=== PATIENT | female | born 1995 | race African-American/Black ===

== ENCOUNTER 2017-09-26 20:18 | Emergency (ER) | payer SELFPAY ==
--- NOTE | 2017-09-26 20:40 | ER Document Report ---
ED Medical Screen (RME) - General Chief Complaint: Vaginal Bleeding Stated Complaint: VAGINAL BLEEDING Time Seen by Provider: 09/26/17 20:38 Mode of Arrival: Ambulatory Information source: Patient Notes: Patient reports several months of heavy vaginal bleeding. She denies any problems with lightheadedness or dizziness. She states that every time she has an EKG done her heart rate is always over 100. TRAVEL OUTSIDE OF THE [place] IN LAST 30 DAYS: No - Related Data Allergies/Adverse Reactions: No Known Allergies Allergy (Verified 02/10/14 00:50) Past Medical History - Social History Chew tobacco use (# tins/day): No Frequency of alcohol use: None Drug Abuse: None Endocrine Medical History: Denies: Hx Diabetes Mellitus Type 1, Hx Diabetes Mellitus Type 2 Renal/ Medical History: Denies: Hx Peritoneal Dialysis - Immunizations Immunizations up to date: Yes Hx Diphtheria, Pertussis, Tetanus Vaccination: Yes Physical Exam - Vital signs Vitals: Temp Pulse Resp BP Pulse Ox 98.7 F 115 H 20 140/91 H 98 09/26/17 20:31 09/26/17 20:31 09/26/17 20:31 09/26/17 20:31 09/26/17 20:31 Course - Vital Signs Vital signs: Temp Pulse Resp BP Pulse Ox 98.7 F 115 H 20 140/91 H 98 09/26/17 20:31 09/26/17 20:31 09/26/17 20:31 09/26/17 20:31 09/26/17 20:31
[2017-09-26 21:09] LABS: ABSOLUTE BASOPHILS # (AUTO) 0.1 10^3/uL (0.0-0.2); ABSOLUTE EOSINOPHILS # (AUTO) 0.4 10^3/uL (0.0-0.6); ABSOLUTE LYMPHOCYTES (AUTO) 2.8 10^3/uL (0.5-4.7); ABSOLUTE MONOCYTES (AUTO) 0.8 10^3/uL (0.1-1.4); BASOPHILS % (AUTO) 0.8 % (0-2); EOSINOPHILS % (AUTO) 3.6 % (0-6); HEMATOCRIT 39.6 % (36.0-47.0); HEMOGLOBIN 13.2 g/dL (12.0-15.5); LYMPHOCYTES % (AUTO) 28.1 % (13-45); MEAN CORPUSCULAR HGB CONC 33.4 g/dL (32.0-36.0); MEAN CORPUSCULAR VOLUME 84 fl (80-97); MONOCYTES % (AUTO) 7.6 % (3-13); PLATELET COUNT 433 10^3/uL (150-450); RED BLOOD COUNT 4.72 10^6/uL (3.72-5.28); RED CELL DISTRIBUTION WIDTH 14.2 % (11.5-14.0); SEGMENTED NEUTROPHILS % (AUTO) 59.9 % (42-78); TOTAL CELLS COUNTED % (AUTO) 100 %
[2017-09-26 21:33] LABS: ALANINE AMINOTRANSFERASE 32 U/L (9-52); ALBUMIN 4.2 g/dL (3.5-5.0); ALKALINE PHOSPHATASE 97 U/L (38-126); ANION GAP 10 (5-19); ASPARTATE AMINO TRANSFERASE 18 U/L (14-36); BILIRUBIN,DIRECT 0.1 mg/dL (0.0-0.4); BILIRUBIN,TOTAL 0.1 mg/dL (0.2-1.3); BLOOD UREA NITROGEN 12 mg/dL (7-20); CALCIUM 9.5 mg/dL (8.4-10.2); CARBON DIOXIDE 27 mmol/L (22-30); CHLORIDE 108 mmol/L (98-107); GLUCOSE 75 mg/dL (75-110); POTASSIUM 4.1 mmol/L (3.6-5.0); SODIUM 145.1 mmol/L (137-145); TOTAL PROTEIN 7.7 g/dL (6.3-8.2)
--- NOTE | 2017-09-26 21:35 | ER Document Report ---
ED GI/ - General Chief Complaint: Vaginal Bleeding Stated Complaint: VAGINAL BLEEDING Time Seen by Provider: 09/26/17 20:38 Mode of Arrival: Ambulatory Information source: Patient TRAVEL OUTSIDE OF THE [place] IN LAST 30 DAYS: No - HPI Patient complains to provider of: Vaginal bleeding Notes: 09/26/17 21:32 Patient is here with complaints of vaginal bleeding. She states that she has a long history of abnormal periods. She states that 3 years ago she was having heavy periods and was placed on control which seem to regulate everything. She came off control approximately a year ago and ever since that time she has had intermittent abnormal periods. She states that she has times where she bleeds for an entire month and then will stop for a few days and then have some spotting and then stop and then bleed. For the last month she has had bleeding. Her last sexual activity was in June. She states over the last few days she has been having some lower abdominal cramping. She denies any significant pain currently. No fever. No nausea, vomiting, diarrhea. No dysuria. No rash. No injury. She denies any dizziness, chest pain, shortness of breath. No syncope. She has no other complaints at this time. She has not seen an [employer] SUPERVISOR for this problem. - Related Data Allergies/Adverse Reactions: No Known Allergies Allergy (Verified 02/10/14 00:50) Past Medical History - General Information source: Patient - Social History Smoking Status: Never Smoker Chew tobacco use (# tins/day): No Frequency of alcohol use: None Drug Abuse: None Family History: Reviewed & Not Pertinent Patient has suicidal ideation: No Patient has homicidal ideation: No Endocrine Medical History: Denies: Hx Diabetes Mellitus Type 1, Hx Diabetes Mellitus Type 2 Renal/ Medical History: Denies: Hx Peritoneal Dialysis - Immunizations Immunizations up to date: Yes Hx Diphtheria, Pertussis, Tetanus Vaccination: Yes Review of Systems - Review of Systems -: Yes All other systems reviewed and negative Physical Exam - Vital signs Vitals: Temp Pulse Resp BP Pulse Ox 98.7 F 115 H 20 140/91 H 98 09/26/17 20:31 09/26/17 20:31 09/26/17 20:31 09/26/17 20:31 09/26/17 20:31 - Notes Notes: GENERAL: alert, cooperative, nontoxic, no distress. HEAD: normocephalic, atraumatic EYES: conjunctiva pink without discharge, no external redness or swelling. EARS: no external swelling, no external redness NOSE: atraumatic, no external swelling MOUTH/THROAT: mucous membranes moist and pink, posterior pharynx without erythema, swelling, exudate. No trismus or drooling. NECK: soft, supple, full range of motion, no meningismus. CHEST: no distress, lungs clear and equal throughout. No wheezing, rales, rhonchi. CARDIAC: regular rate and rhythm, no murmur, normal capillary refill, normal pulses. No peripheral edema noted. ABDOMEN: Soft, nontender. No rebound tenderness or guarding. No mass. BACK: full range of motion, no CVA tenderness. EXTREMITIES: full range of motion of all extremities. No redness, no swelling. NEURO: alert and oriented x 3, no focal deficits, full range of motion of all extremities. PYSCH: appropriate mood, affect. Patient is cooperative. SKIN: pink, warm, dry, no rash. : Performed with a female foundry manager at the bedside. No external lesions. Small amount of blood within the vaginal vault. Cervical office appears slightly irritated. No cervical motion tenderness, no adnexal tenderness or mass on bimanual exam. No discharge. Course - Re-evaluation Re-evalutation: 09/26/17 22:50 Patient is nontoxic. Stable vitals. The patient is here with complaints of vaginal bleeding. She states that she said significant abnormal periods for the last year and basically has had fairly constant bleeding for the last year. She has had no syncope, dizziness, chest pain or shortness of breath. Started having some lower abdominal cramping. She has no abdominal tenderness on exam. Pelvic exam shows small amount of vaginal blood with no other significant abnormal findings. Hemoglobin is stable. The remainder of her labs are stable. Urinalysis shows no signs of infection. Wet prep is negative. GC chlamydia cultures are pending, the patient will be contacted if these are positive. This point the patient is fine for discharge home. She does need to follow-up with [employer] SUPERVISOR or primary care to try to get her dysfunctional uterine bleeding under control. Patient be discharged with a prescription for Naprosyn that she can take as needed for her cramping. The patient's emergency department workup and current diagnosis were explained to the patient and or family. Follow-up instructions were provided. Medications if prescribed were discussed. Instructions for when to return to the emergency department including specific worrisome symptoms were discussed with the patient and/or family. The patient is noted to have elevated blood pressure during today's emergency department visit. The patient was informed of this finding. The patient was instructed that this may be related to pre-hypertension and requires further evaluation with a primary care provider. The patient has no hypertensive symptoms at this time. - Vital Signs Vital signs: Temp Pulse Resp BP Pulse Ox 98.7 F 115 H 20 140/91 H 98 09/26/17 20:31 09/26/17 20:31 09/26/17 20:31 09/26/17 20:31 09/26/17 20:31 - Laboratory Result Diagrams: 09/26/17 20:50 09/26/17 20:50 Laboratory results interpreted by me: 09/26/17 09/26/17 09/26/17 20:50 20:50 21:07 RDW 14.2 H Sodium 145.1 H Chloride 108 H Total Bilirubin 0.1 L Urine Blood MODERATE H Urine Urobilinogen 4.0 H Discharge - Discharge Clinical Impression: Dysfunctional uterine bleeding Condition: Stable Disposition: HOME, SELF-CARE Instructions: Dysfunctional Uterine Bleeding ([facility]) Additional Instructions: Take medications as prescribed. Follow-up with [employer] SUPERVISOR or primary care at the next available appointment. Follow-up sooner for increasing pain, high fever, persistent vomiting, severe bleeding, passing out, dizziness, chest pain, or for any further concerns. Your blood pressure was elevated during today's visit. Have this rechecked with your doctor. Prescriptions: Naproxen [Naprosyn] 500 mg PO BID #20 tablet Forms: Elevated Blood Pressure, Smoking Cessation Education Referrals: CANDIS MESA MD [ACTIVE STAFF] - Follow up as needed [facility] [Provider Group] - Follow up as needed
[2017-09-26 21:37] LABS: APPEARANCE,URINE SLIGHTLY-CLOUDY; BILIRUBIN,URINE NEGATIVE (NEGATIVE); COLOR,URINE YELLOW; GLUCOSE, URINE NEGATIVE (NEGATIVE); KETONES,URINE NEGATIVE (NEGATIVE); LEUKOCYTE ESTERASE,URINE NEGATIVE (NEGATIVE); NITRITE,URINE NEGATIVE (NEGATIVE); PROTEIN,URINE NEGATIVE (NEGATIVE); URINE SPECIFIC GRAVITY 1.027
[2017-09-26 22:25] LABS: T.VAGINALIS (WET MOUNT) NO TRICHOMONAS SEEN; WBCS (WET MOUNT) RARE WBCS SEEN; YEAST (WET MOUNT) NO YEAST SEEN
[2017-09-26 22:26] LABS: RBCS (WET MOUNT) 3+ RBCS SEEN
[2017-09-26 23:06] VITALS: BP 121/80
[2017-09-26 23:52] LABS: CHLAM PCR NOT DETECTED (NOT DETECT); GON PCR DETECTED (NOT DETECT)
== END 2017-09-26 23:07 | disposition home or self-care (01) ==
LOC: ER 20:18
DX: N93.8 Other specified abnormal uterine and vaginal bleeding (principal); R10.30 Lower abdominal pain, unspecified; R03.0 Elevated blood-pressure reading, without diagnosis of hypertension
CPT/HCPCS: 36415; 80053; 81001; 81025; 85025; 87210; 87491; 87591; 99284

== ENCOUNTER 2018-06-11 21:38 | Emergency (ER) | payer BC, MEDICAID ==
--- NOTE | 2018-06-11 23:14 | ER Document Report ---
ED Medical Screen (RME) - General Chief Complaint: Weakness Stated Complaint: LIGHT HEADED Time Seen by Provider: 06/11/18 23:12 Mode of Arrival: Ambulatory Information source: Patient Notes: 23-year-old female presents the ED for complaint of almost passing out and lightheaded and dizzy. She states the episode started on Sunday she was sent as a computer felt like she was going to pass out. She got up and walked around and felt like she was walking to the side. She states after little bit this episode went away but she has had multiple episodes similar to this since then. She denies any pain nausea or vomiting at this time. She states that time she has headaches and feels very shaky but she is feeling stable at this time. Patient is alert and oriented walks with a even steady gait pupils equal and react to light. She states she has PCO S and she sometimes gets menstrual cycles that last a long time. She states that this menstrual cycle that she is on now started about a month ago and she usually saturates through tampons a day. I have greeted and performed a rapid initial assessment of this patient. A comprehensive ED assessment and evaluation of the patient, analysis of test results and completion of medical decision making process will be conducted by an additional ED providers. TRAVEL OUTSIDE OF THE [place] IN LAST 30 DAYS: No - Related Data Allergies/Adverse Reactions: No Known Allergies Allergy (Verified 02/10/14 00:50) Past Medical History Endocrine Medical History: Denies: Hx Diabetes Mellitus Type 1, Hx Diabetes Mellitus Type 2 Renal/ Medical History: Denies: Hx Peritoneal Dialysis - Immunizations Immunizations up to date: Yes Hx Diphtheria, Pertussis, Tetanus Vaccination: Yes Physical Exam - Vital signs Vitals: Temp Pulse Resp BP Pulse Ox 98.3 F 92 17 119/73 97 06/11/18 21:44 06/11/18 21:44 06/11/18 21:44 06/11/18 21:44 06/11/18 21:44 Course - Vital Signs Vital signs: Temp Pulse Resp BP Pulse Ox 98.3 F 92 17 119/73 97 06/11/18 21:44 06/11/18 21:44 06/11/18 21:44 06/11/18 21:44 06/11/18 21:44
[2018-06-12 00:20] LABS: ABSOLUTE BASOPHILS # (AUTO) 0.1 10^3/uL (0.0-0.2); ABSOLUTE EOSINOPHILS # (AUTO) 0.2 10^3/uL (0.0-0.6); ABSOLUTE LYMPHOCYTES (AUTO) 3.5 10^3/uL (0.5-4.7); ABSOLUTE MONOCYTES (AUTO) 0.6 10^3/uL (0.1-1.4); ABSOLUTE NEUT (AUTO) 7.4 10^3/uL (1.7-8.2); EOSINOPHILS % (AUTO) 1.9 % (0-6); HEMATOCRIT 40.6 % (36.0-47.0); HEMOGLOBIN 13.7 g/dL (12.0-15.5); LYMPHOCYTES % (AUTO) 29.6 % (13-45); MEAN CORPUSCULAR HEMOGLOBIN 27.5 pg (27.0-33.4); MEAN CORPUSCULAR HGB CONC 33.9 g/dL (32.0-36.0); MEAN CORPUSCULAR VOLUME 81 fl (80-97); MONOCYTES % (AUTO) 4.7 % (3-13); PLATELET COUNT 429 10^3/uL (150-450); RED CELL DISTRIBUTION WIDTH 15.1 % (11.5-14.0); SEGMENTED NEUTROPHILS % (AUTO) 62.8 % (42-78); TOTAL CELLS COUNTED % (AUTO) 100 %; WHITE BLOOD COUNT 11.8 10^3/uL (4.0-10.5)
[2018-06-12 00:30] LABS: APPEARANCE,URINE SLIGHTLY-CLOUDY; BILIRUBIN,URINE NEGATIVE (NEGATIVE); COLOR,URINE YELLOW; GLUCOSE, URINE NEGATIVE (NEGATIVE); KETONES,URINE NEGATIVE (NEGATIVE); LEUKOCYTE ESTERASE,URINE NEGATIVE (NEGATIVE); NITRITE,URINE NEGATIVE (NEGATIVE); PROTEIN,URINE NEGATIVE (NEGATIVE); URINE SPECIFIC GRAVITY 1.009; UROBILINOGEN,URINE NEGATIVE mg/dL (<2.0)
--- NOTE | 2018-06-12 01:06 | ER Document Report ---
ED General - General Chief Complaint: Weakness Stated Complaint: LIGHT HEADED Time Seen by Provider: 06/11/18 23:12 Mode of Arrival: Ambulatory TRAVEL OUTSIDE OF THE [place] IN LAST 30 DAYS: No - HPI Patient complains to provider of: Lightheaded Notes: 23-year-old female past medical history of PCO S presents to the emergency department for lightheadedness and dizziness that started on Sunday while at work. She says she was sitting at her computer and noticed a burning smell, panic, stood up and had an unsteady gait. She said it has persisted throughout the weekend and when she was at home she stood up to greet her and could not keep her balance and was walking off to one side. She states she "feels off". She fusion, denies headache, visual changes, any constitutional symptoms, denies shortness of breath, endorses some chest pressure described as heavy, denies nausea, denies vomiting, has no other symptoms. She is not on any oral contraceptives. No recent sick contacts. - Related Data Allergies/Adverse Reactions: No Known Allergies Allergy (Verified 02/10/14 00:50) Past Medical History - General Information source: Patient - Social History Smoking Status: Never Smoker Family History: Reviewed & Not Pertinent Endocrine Medical History: Denies: Hx Diabetes Mellitus Type 1, Hx Diabetes Mellitus Type 2 Renal/ Medical History: Denies: Hx Peritoneal Dialysis - Immunizations Immunizations up to date: Yes Hx Diphtheria, Pertussis, Tetanus Vaccination: Yes Review of Systems - Review of Systems Constitutional: See HPI EENT: See HPI Cardiovascular: See HPI Respiratory: See HPI Gastrointestinal: See HPI Genitourinary: See HPI Female Genitourinary: See HPI Musculoskeletal: No symptoms reported Skin: No symptoms reported Hematologic/Lymphatic: No symptoms reported Neurological/Psychological: See HPI Physical Exam - Vital signs Vitals: Temp Pulse Resp BP Pulse Ox 98.3 F 92 17 119/73 97 06/11/18 21:44 06/11/18 21:44 06/11/18 21:44 06/11/18 21:44 06/11/18 21:44 - Notes Notes: Reviewed vital signs and nursing note as charted by RN. CONSTITUTIONAL: Well-appearing, well-nourished; acting appropriately for age HEAD: Normocephalic; atraumatic; No swelling EYES: PERRL; Conjunctivae clear, no drainage; EOMI ENT: External ears without lesions; External auditory canal is patent; TMs without erythema, landmarks clear and well visualized; no rhinorrhea; Pharynx without erythema or lesions, no tonsillar hypertrophy, airway patent, mucous membranes pink and moist, trace thrush NECK: Supple, no cervical lymphadenopathy, no masses CARD: Regular rate and rhythm; no murmurs, no rubs, no gallops, capillary refill < 2 seconds, symmetric pulses RESP: Respiratory rate and effort are normal. There is normal chest excursion. No respiratory distress, no retractions, no stridor, no nasal flaring, no accessory muscle use. The lungs are clear to auscultation bilaterally, no wheezing, no rales, no rhonchi. ABD/GI: Normal bowel sounds; non-distended; soft, non-tender, no rebound, no guarding, no palpable organomegaly EXT: Normal ROM in all joints; non-tender to palpation; no effusions, no edema SKIN: Normal color for age and race; warm; dry; good turgor; no acute lesions noted NEURO: A&O x 4, GCS 15, No facial asymmetry; no pronator drift, EOMI, no focal deficits, stable gait, no dysdiadochokinesis, heel to toe intact, Moves all extremities equally, strength 5/5 x 4 extremities; Motor and sensory function intact Course - Re-evaluation Re-evalutation: 06/12/18 02:08 EKG negative. No anemia on CBC. Neuro exam normal, no focal deficits, steady gait. Patient is stable to discharge home with close follow-up with her primary doctor. 06/12/18 02:08 - Vital Signs Vital signs: Temp Pulse Resp BP Pulse Ox 98.3 F 92 17 119/73 97 06/11/18 21:44 06/11/18 21:44 06/11/18 21:44 06/11/18 21:44 06/11/18 21:44 - Laboratory Result Diagrams: 06/12/18 00:11 Laboratory results interpreted by me: 06/12/18 06/12/18 00:02 00:11 WBC 11.8 H RDW 15.1 H Urine Blood SMALL H Urine Ascorbic Acid 20 H Discharge - Discharge Clinical Impression: Lightheaded Condition: Good Disposition: HOME, SELF-CARE Instructions: Dizziness ([facility]) Additional Instructions: You were seen in the emergency department this evening for dizziness and lightheadedness. Your clinical exam and lab work was reassuring that there is no acute process occurring. Dizziness is a very common symptom and could be caused by many things. Please follow-up with your primary care doctor. You have worsening symptoms, pass out, have chest pain, intractable vomiting, shortness of breath please immediately return to the emergency department. Forms: Return to Work
[2018-06-12 02:30] VITALS: BP 113/70
--- NOTE | 2018-06-12 07:37 | EKG REPORT ---
SEVERITY:- BORDERLINE ECG - SINUS RHYTHM BORDERLINE T ABNORMALITIES, ANTERIOR LEADS : Confirmed by: Stanley Adair MD 12-Jun-2018 07:36:09
== END 2018-06-12 02:30 | disposition home or self-care (01) ==
LOC: ER 21:38
DX: R53.1 Weakness (principal); R42 Dizziness and giddiness
CPT/HCPCS: 36415; 81001; 84702; 85025; 93005; 93010; 99285

== ENCOUNTER 2019-06-08 10:18 | Emergency (ER) | payer SELFPAY ==
--- NOTE | 2019-06-08 10:29 | ER Document Report ---
ED Medical Screen (RME) - General Chief Complaint: Breathing Difficulty Stated Complaint: DIFFICULTY BREATHING Time Seen by Provider: 06/08/19 10:23 Mode of Arrival: Ambulatory Information source: Patient Notes: Patient is an otherwise healthy 24-year-old female presenting to the emergency department with shortness of breath and chest pain. Patient reports that this is been going on since yesterday. She reports anytime she takes a deep breath she gets this sharp stabbing pain in the center of her chest. She denies any recent illness, cough or congestion. She denies any history of DVT or PE. She is a non-smoker, she has not had any recent travel but she did recently start taking control pills about 2 months ago for her PCOS. Patient is tachycardic in triage, heart rate fluctuating between 130 and 140. NEEMA 2 assigned. Exam: Patient is calm, cooperative, alert and oriented. Tachycardia as outlined above. Lung sounds clear and equal bilaterally. I have greeted and performed a rapid initial assessment of this patient. A comprehensive ED assessment and evaluation of the patient, analysis of test results and completion of the medical decision making process will be conducted by additional ED providers. I have specifically instructed the patient or family members with the patient to immediately return to any nursing staff should anything change in the patient's condition or with their chief complaint. This medical record was dictated with voice recognizing software. There may be grammatical, syntax errors that are unintended. TRAVEL OUTSIDE OF THE [place] IN LAST 30 DAYS: No - Related Data Allergies/Adverse Reactions: No Known Allergies Allergy (Verified 02/10/14 00:50) Past Medical History Endocrine Medical History: Denies: Hx Diabetes Mellitus Type 1, Hx Diabetes Mellitus Type 2 Renal/ Medical History: Denies: Hx Peritoneal Dialysis - Immunizations Immunizations up to date: Yes Hx Diphtheria, Pertussis, Tetanus Vaccination: Yes Physical Exam - Vital signs Vitals: Temp Pulse Resp BP Pulse Ox 99.3 F 119 H 16 146/83 H 97 06/08/19 10:22 06/08/19 10:22 06/08/19 10:22 06/08/19 10:22 06/08/19 10:22 Course - Vital Signs Vital signs: Temp Pulse Resp BP Pulse Ox 99.3 F 119 H 16 146/83 H 97 06/08/19 10:22 06/08/19 10:22 06/08/19 10:22 06/08/19 10:22 06/08/19 10:22
--- NOTE | 2019-06-08 11:34 | ER Document Report ---
ED General - General Chief Complaint: Breathing Difficulty Stated Complaint: DIFFICULTY BREATHING Time Seen by Provider: 06/08/19 10:23 Primary Care Provider: LIAT HARRIS MD [Primary Care Provider] - Follow up as needed Mode of Arrival: Ambulatory Notes: 24-year-old female with history of PCOS recently started on OCPs presents to the emergency department with acute shortness of breath and chest pain. Patient states it started yesterday. She states every time she takes a deep breath she gets a sharp stabbing pain in the center of her chest that is reproducible. She denies any recent illness but says her recently had a viral illness. She denies cough or congestion, denies any history of DVT or PE. Patient does not smoke, no recent long distance travel. TRAVEL OUTSIDE OF THE [place] IN LAST 30 DAYS: No - Related Data Allergies/Adverse Reactions: tree nut Allergy (Verified 06/08/19 10:31) fresh fruits and vegetables Allergy (Uncoded 06/08/19 10:31) Home Medications: control Past Medical History - General Information source: Patient - Social History Smoking Status: Never Smoker Frequency of alcohol use: Occasional Drug Abuse: None Family History: Reviewed & Not Pertinent Patient has suicidal ideation: No Patient has homicidal ideation: No Endocrine Medical History: Denies: Hx Diabetes Mellitus Type 1, Hx Diabetes Mellitus Type 2 Renal/ Medical History: Denies: Hx Peritoneal Dialysis - Immunizations Immunizations up to date: Yes Hx Diphtheria, Pertussis, Tetanus Vaccination: Yes Review of Systems - Review of Systems Constitutional: See HPI EENT: See HPI Cardiovascular: See HPI Respiratory: See HPI Gastrointestinal: See HPI Genitourinary: No symptoms reported Female Genitourinary: No symptoms reported Musculoskeletal: No symptoms reported Skin: No symptoms reported Hematologic/Lymphatic: No symptoms reported Neurological/Psychological: No symptoms reported Physical Exam - Vital signs Vitals: Temp Pulse Resp BP Pulse Ox 99.3 F 119 H 16 146/83 H 97 06/08/19 10:22 06/08/19 10:22 06/08/19 10:22 06/08/19 10:22 06/08/19 10:22 - Notes Notes: PHYSICAL EXAMINATION: Reviewed vital signs and charting by RN GENERAL: Alert, interacts well. No acute distress. HEAD: Normocephalic, atraumatic. EYES: Pupils equal and round. Extraocular movements intact. ENT: Oral mucosa moist, tongue midline. NECK: Full range of motion. Trachea midline. LUNGS: Clear to auscultation bilaterally, no wheezes, rales, or rhonchi. No respiratory distress. HEART: Tachycardia with regular rhythm. No murmur ABDOMEN: soft, non-tender. No distention. Bowel sounds present EXTREMITIES: Moves all 4 extremities spontaneously. No edema, No cyanosis. PSYCH: Normal affect, normal mood. SKIN: Warm, dry, normal turgor. No rashes or lesions noted. Course - Re-evaluation Re-evalutation: 06/08/19 11:33 Patient is well-appearing in no acute distress, afebrile. Patient is tachycardic and lungs are clear to auscultation in all bergman. Unable to PERC patient out so I am going to obtain a d-dimer. 06/08/19 12:48 D-dimer was equivocal at 0.50. Patient is still mildly tachycardic and does have pain on deep inspiration. Because patient has recently started OCPs and the symptoms are acute I am going to move forward with a CTA chest. 06/08/19 14:04 CTA chest negative for any pulmonary embolism, no evidence of parenchymal disease. I did explain all this to patient and she is reassured. Patient has remained very mildly tachycardic improved from triage and from her EKG. EEG did show sinus tachycardia with a rate of 124, normal axis, no evidence of STEMI or N STEMI. I explained all of this to the patient and reassured her. Could be related to her workout from and delayed onset muscle soreness. Di fferential diagnosis could also include anxiety, pain from muscle soreness. I reassured patient and she agrees with the plan and is stable for discharge. - Vital Signs Vital signs: Temp Pulse Resp BP Pulse Ox 98.6 F 119 H 18 104/61 97 06/08/19 11:01 06/08/19 10:22 06/08/19 12:03 06/08/19 12:03 06/08/19 12:03 - Laboratory Result Diagrams: 06/08/19 11:48 06/08/19 11:48 Laboratory results interpreted by me: 06/08/19 06/08/19 11:48 11:48 WBC 16.8 H RDW 14.1 H Lymph % (Auto) 8.5 L Absolute Neuts (auto) 14.6 H Seg Neutrophils % 86.9 H Chloride 109 H Carbon Dioxide 20 L Discharge - Discharge Clinical Impression: Chest pain Qualifiers: Chest pain type: chest pain on breathing Qualified Code(s): R07.1 - Chest pain on breathing; R07.81 - Pleurodynia Condition: Good Disposition: HOME, SELF-CARE Additional Instructions: You were seen in the emergency department this afternoon for chest pain shortness of breath. Your heart rate was fast but it is improving. Also, your EKG was normal and there was no evidence of a clot in your lungs on imaging. This is all very reassuring and there is no emergent condition at this time. Please continue to stay hydrated. Please return to the emergency department if you develop worsening acute shortness of breath, worsening severe constant chest pain, you pass out, acute weakness, or you have any other concerning symptoms. Referrals: LIAT HARRIS MD [Primary Care Provider] - Follow up as needed
[2019-06-08 11:53] LABS: ABSOLUTE BASOPHILS # (AUTO) 0.1 10^3/uL (0.0-0.2); ABSOLUTE EOSINOPHILS # (AUTO) 0.1 10^3/uL (0.0-0.6); ABSOLUTE LYMPHOCYTES (AUTO) 1.4 10^3/uL (0.5-4.7); ABSOLUTE MONOCYTES (AUTO) 0.6 10^3/uL (0.1-1.4); ABSOLUTE NEUT (AUTO) 14.6 10^3/uL (1.7-8.2); BASOPHILS % (AUTO) 0.4 % (0-2); EOSINOPHILS % (AUTO) 0.7 % (0-6); HEMATOCRIT 37.4 % (36.0-47.0); HEMOGLOBIN 12.5 g/dL (12.0-15.5); LYMPHOCYTES % (AUTO) 8.5 % (13-45); MEAN CORPUSCULAR HEMOGLOBIN 27.5 pg (27.0-33.4); MEAN CORPUSCULAR HGB CONC 33.4 g/dL (32.0-36.0); MEAN CORPUSCULAR VOLUME 82 fl (80-97); MONOCYTES % (AUTO) 3.5 % (3-13); PLATELET COUNT 355 10^3/uL (150-450); RED BLOOD COUNT 4.54 10^6/uL (3.72-5.28); RED CELL DISTRIBUTION WIDTH 14.1 % (11.5-14.0); SEGMENTED NEUTROPHILS % (AUTO) 86.9 % (42-78); TOTAL CELLS COUNTED % (AUTO) 100 %; WHITE BLOOD COUNT 16.8 10^3/uL (4.0-10.5)
--- NOTE | 2019-06-08 11:56 | RADIOLOGY REPORT (SQ) ---
EXAM DESCRIPTION: CHEST SINGLE VIEW COMPLETED DATE/TIME: 06/08/2019 11:38 am REASON FOR STUDY: chest pain/sob COMPARISON: 09/17/2018 EXAM PARAMETERS: NUMBER OF VIEWS: One view. TECHNIQUE: Single frontal radiographic view of the chest acquired. RADIATION DOSE: NA LIMITATIONS: None. FINDINGS: LUNGS AND PLEURA: No opacities, masses or pneumothorax. No pleural effusion. MEDIASTINUM AND HILAR STRUCTURES: No masses. Contour normal. HEART AND VASCULAR STRUCTURES: Heart normal in size. Normal vasculature. BONES: No acute findings. HARDWARE: None in the chest. OTHER: No other significant finding. IMPRESSION: NO ACUTE RADIOGRAPHIC FINDING IN THE CHEST. TECHNICAL DOCUMENTATION: JOB ID: [id number] [email or web address] Rights Reserved Reading location - IP/workstation name: [email or web address]
[2019-06-08 12:10] LABS: ALBUMIN 3.7 g/dL (3.5-5.0); ALKALINE PHOSPHATASE 89 U/L (38-126); ANION GAP 12 (5-19); ASPARTATE AMINO TRANSFERASE 17 U/L (14-36); BILIRUBIN,DIRECT 0.1 mg/dL (0.0-0.4); BILIRUBIN,TOTAL 0.4 mg/dL (0.2-1.3); BLOOD UREA NITROGEN 10 mg/dL (7-20); CALCIUM 9.1 mg/dL (8.4-10.2); CARBON DIOXIDE 20 mmol/L (22-30); CHLORIDE 109 mmol/L (98-107); GLUCOSE 94 mg/dL (75-110); POTASSIUM 4.4 mmol/L (3.6-5.0); TOTAL PROTEIN 7.3 g/dL (6.3-8.2)
[2019-06-08] MEDS ORDERED: NORMAL SALINE 1000 ML 1,000 ML IV ONE (12:49)
--- NOTE | 2019-06-08 13:57 | RADIOLOGY REPORT (SQ) ---
EXAM DESCRIPTION: CTA CHEST COMPLETED DATE/TIME: 06/08/2019 1:45 pm REASON FOR STUDY: SOB, tachycardia, concern PE COMPARISON: Same day chest radiograph TECHNIQUE: CT scan of the chest performed using helical scanning technique with dynamic intravenous contrast injection. Images reviewed with lung, soft tissue and bone windows. Reconstructed coronal and sagittal MPR images reviewed. Additional 3 dimensional post-processing performed to develop Maximal Intensity Projection images (RI P). All images stored on PACS. All CT scanners at this facility use dose modulation, iterative reconstruction, and/or weight based d osing when appropriate to reduce radiation dose to as low as reasonably achievable (ALARA). [facility]: Dose Right [facility]: CareDose [facility]: Dose Right [facility]: Teradose 4D [facility]: Digital Theatre CONTRAST TYPE AND DOSE: contrast/concentration: Isovue 350.00 mg/ml; Total Contrast Delivered: 75.0 ml; Total Saline Delivered: 80.0 ml Contrast bolus optimized for the pulmonary arteries. Not diagnostic for the aorta. RENAL FUNCTION: None required. The patient is less than 50 years old. RADIATION DOSE: CT Rad equipment meets quality standard of care and radiation dose reduction techniq ues were employed. CTDIvol: 6.6 - 36.9 mGy. DLP: 1332 mGy-cm. . LIMITATIONS: None. FINDINGS: LUNGS AND PLEURA: No masses, infiltrates, or pneumothorax. No pleural effusions or pleura l calcifications. AORTA AND GREAT VESSELS: No aneurysm. Contrast bolus not optimized for the aorta. HEART: No pericardial effusion. No significant coronary artery calcifications. PULMONARY ARTERIES: No emboli visualized in the main pulmonary arteries or the segmental branches. HILAR AND MEDIASTINAL STRUCTURES: No identified masses or abnormal nodes. HARDWARE: None in the chest. UPPER ABDOMEN: No significant findings. Limited exam. THYROID AND OTHER SOFT TISSUES: No masses. No adenopathy. BONES: No acute or significant finding. 3D MIPS: Confirm above findings. OTHER: No other significant finding. IMPRESSION: Negative examination for pulmonary embolism. COMMENT: Quality ID # [id number]: Final reports with documentation of one or more dose reduction techniques (e.g., Automated exposure control, adjustment of the mA and/or kV according to patient size, use of iterative reconstruction technique) TECHNICAL DOCUMENTATION: JOB ID: [id number] [employer]- All Rights Reserved Reading location - IP/workstation name: [email or web address]
[2019-06-08 14:26] VITALS: BP 124/81
--- NOTE | 2019-06-08 17:05 | EKG REPORT ---
SEVERITY:- BORDERLINE ECG - SINUS TACHYCARDIA PROBABLE LEFT ATRIAL ABNORMALITY BORDERLINE T ABNORMALITIES, DIFFUSE LEADS : Confirmed by: Stanley Adair MD 08-Jun-2019 17:04:29
== END 2019-06-08 14:36 | disposition home or self-care (01) ==
LOC: ER 10:18
DX: R07.1 Chest pain on breathing (principal); R07.81 Pleurodynia; R06.02 Shortness of breath; E28.2 Polycystic ovarian syndrome; R00.0 Tachycardia, unspecified; Z20.828 Contact with and (suspected) exposure to other viral communicable diseases; Z91.018 Allergy to other foods
CPT/HCPCS: 93005; 99284; 96360; 36415; 84703; 85025; 80053; 84484; 85379; 71045; 71275; 93010; J7030